=== PATIENT | male | born 1995 | race American Indian/Alaskan Native ===

== ENCOUNTER 2016-10-20 04:40 | Emergency (ER) | payer OTHER ==
[2016-10-20] MEDS ORDERED: XYLOCAINE 1%/ EPI 1:100,000 INFILTRATI NR (11:00)
[2016-10-20] MEDS ORDERED: XYLOCAINE 1% MPF 5 mL INFILTRATI ONE (11:04)
[2016-10-20] MEDS ORDERED: FLEXERIL PO ONE (11:18)
[2016-10-20] MEDS ORDERED: MOTRIN PO ONE (11:18)
[2016-10-20] MEDS ORDERED: BOOSTRIX IM ONE (11:18)
--- NOTE | 2016-10-20 11:57 | Emergency Department Report ---
HPI - General Chief Complaint: Medical Clearance Time Seen by Provider: 10/20/16 09:24 - HPI HPI: 21-year-old female presents today with a pain over his left mandaen, bilateral knee pain and lower back pain since 3 AM this morning. Patient states that he was elbowed to his left mandaen multiple times by the police. Patient also complaining of a Taser needle in his right hip. Tetanus status unknown. Patient states his bilateral knee pain and lower back pain seems like his muscles tense and is aching. Rates his left mandaen pain as 8 out of 10. Denies numbness, weakness, paresthesias. Denies visual change, dizziness, confusion. Denies fever, chills, nausea, vomiting, chest pain, shortness of breath, abdominal pain. ED Past Medical Hx - Past Medical History Previous Medical History?: No - Surgical History Past Surgical History?: No - Social History Smoking Status: Current Every Day Smoker Substance Use Type: None - Medications Home Medications: Home Medications Medication Instructions Recorded Confirmed Last Taken Type HYDROcodone/APAP 10-325 [[place] 1 each PO Q6HR PRN #16 tablet 12/20/14 Unknown Rx 10/325] HYDROcodone/APAP 5-325 [[place] 1 each PO Q6HR PRN #20 tablet 01/24/15 Unknown Rx 5/325] Sulfamethoxazole/Trimethoprim 1 each PO Q12H #28 tablet 01/24/15 Unknown Rx [Bactrim DS TAB] Ibuprofen [Motrin 600 MG tab] 600 mg PO Q8H PRN #50 tablet 10/20/16 Unknown Rx ED Review of Systems ROS: Stated complaint: MEDICAL CLEARANCE Other details as noted in HPI Constitutional: denies: chills, fever, malaise Eyes: denies: eye pain ENT: denies: ear pain, throat pain, congestion Respiratory: denies: cough, shortness of breath, wheezing Cardiovascular: denies: chest pain, palpitations Endocrine: no symptoms reported Gastrointestinal: denies: abdominal pain, nausea, vomiting Musculoskeletal: back pain, arthralgia Neurological: headache. denies: weakness, numbness, paresthesias Physical Exam - Physical Exam Vital Signs: Vital Signs 10/20/16 10/20/16 04:46 04:50 Temperature 97.6 F 98.3 F Pulse Rate 116 H 112 H Respiratory 18 18 Rate Blood Pressure 120/80 Blood Pressure 120/80 [Right] O2 Sat by Pulse 100 96 Oximetry Physical Exam: GENERAL: The patient is well-developed and well-nourished. Patient is in NAD. HEAD: Normocephalic. Atraumatic. Tenderness to palpation of the left temporal region. EYES: Extraocular motions are intact, PERRL. EARS: External auditory canals and tympanic membranes clear; hearing grossly intact. NOSE: Normal nasal mucosa with no nasal discharge. THROAT: No erythema, swelling or exudates. NECK: Supple, nontender, without lymphadenopathy. CHEST/LUNGS: Clear to auscultation throughout. HEART/CARDIOVASCULAR: Regular rate and rhythm. ABDOMEN: Abdomen is soft, nontender. No guarding or rebound tenderness. BUTTOCKS: Taser needle noted over the lateral aspect of right buttocks. No surrounding erythema or signs of infection noted. BILATERAL KNEE: Abrasions noted over bilateral knee. Full range of motion. Minimal tenderness to palpation. Normal sensation. Peripheral pulses intact. Capillary refill less than 2 seconds. BACK: Full ROM. No midline tenderness. Bilateral paraspinal tenderness of lumbar region. No tenderness to palpation of sciatic notch bilaterally. Negative straight leg raise bilaterally. Neuro: Alert and oriented 3, normal gait, fluid speech, EOMs intact, normal facial sensation, strength exam 5/5 upper and lower extremities, GCS equals 15, finger to nose normal, negative Romberg and pronator drift. ED Course Vital Signs 10/20/16 10/20/16 04:46 04:50 Temperature 97.6 F 98.3 F Pulse Rate 116 H 112 H Respiratory 18 18 Rate Blood Pressure 120/80 Blood Pressure 120/80 [Right] O2 Sat by Pulse 100 96 Oximetry ED Medical Decision Making - Lab Data Vital Signs 10/20/16 10/20/16 10/20/16 04:46 04:50 12:03 Temperature 97.6 F 98.3 F Pulse Rate 116 H 112 H 82 Respiratory 18 18 16 Rate Blood Pressure 120/80 Blood Pressure 120/80 133/80 [Right] O2 Sat by Pulse 100 96 Oximetry - Medical Decision Making 21-year-old female presents today with pain over the left mandaen, bilateral knee abrasions, lumbar strain post injury. The Taser needle was removed from right buttock, patient tolerated procedure well. When care instructions were provided. His tetanus was updated today. Patient was given Flexeril and ibuprofen for symptomatic relief.Patient is in no acute distress at this time. He will be discharged home and is encouraged to follow up with a primary care provider. He will be sent home on ibuprofen and is encouraged to return to the emergency room for any worsening symptoms. Critical care attestation.: If time is entered above; I have spent that time in minutes in the direct care of this critically ill patient, excluding procedure time. ED Disposition Clinical Impression: Puncture wound Knee abrasion Qualifiers: Encounter type: initial encounter Laterality: unspecified laterality Qualified Code(s): S80.219A - Abrasion, unspecified knee, initial encounter Headache Qualifiers: Headache type: post-traumatic Headache chronicity pattern: acute headache Intractability: not intractable Qualified Code(s): G44.319 - Acute post- traumatic headache, not intractable Lumbar strain Qualifiers: Encounter type: initial encounter Qualified Code(s): S39.012A - Strain of muscle, fascia and tendon of lower back, initial encounter Disposition: DISCHARGED TO HOME OR SELFCARE Is pt being admited?: No Does the pt Need Aspirin: No Condition: Stable Instructions: Muscle Strain (ED), Puncture Wound (ED), Minor Head Injury (ED), Acute Headache (ED) Additional Instructions: Follow up with primary care provider. Return to the Emergency Department if symptoms worsen. Prescriptions: Ibuprofen [Motrin 600 MG tab] 600 mg PO Q8H PRN #50 tablet PRN Reason: Pain Referrals: PRIMARY CARE, [Primary Care Provider] - 3-5 Days [facility] [Outside] - 3-5 Days Forms: Work/School Release Form(ED) Time of Disposition: 12:05
[2016-10-20 12:03] VITALS: BP 133/80
== END 2016-10-20 12:14 | disposition home or self-care (01) ==
LOC: EEVIPCON 04:40 → ED 04:40
DX: S31.813A Puncture wound without foreign body of right buttock, initial encounter (principal); S39.012A Strain of muscle, fascia and tendon of lower back, initial encounter; S80.212A Abrasion, left knee, initial encounter; S80.211A Abrasion, right knee, initial encounter; G44.319 Acute post-traumatic headache, not intractable; F17.200 Nicotine dependence, unspecified, uncomplicated; X58.XXXA Exposure to other specified factors, initial encounter; Y93.9 Activity, unspecified; Y92.9 Unspecified place or not applicable; Y99.9 Unspecified external cause status
CPT/HCPCS: 90471; 90715

== ENCOUNTER 2018-03-28 02:00 | Emergency (ER) | payer SELFPAY ==
[2018-03-28 02:04] VITALS: BP 128/87
[2018-03-28] MEDS ORDERED: MOTRIN PO ONE (06:15)
--- NOTE | 2018-03-28 06:16 | Emergency Department Report ---
- General Chief complaint: Skin/Abscess/Foreign Body Stated complaint: TOOTHACHE Time Seen by Provider: 03/28/18 06:05 Source: patient Mode of arrival: Ambulatory Limitations: No Limitations - History of Present Illness Initial comments: 23-year-old male presents with complaint of left-sided facial discomfort for several days. Patient has a small visible facial abscess. Patient has regular nights 3 not in acute distress. Denies fevers or chills. States he also has slight left-sided toothache. No trismus or drooling noted. Patient denies any pus or blood drainage from mouth. MD complaint: abscess/boil Onset/Timin -: days(s) Location: face Severity: moderate Severity scale (0 -10): 5 Quality: aching Consistency: constant - Related Data Previous Rx's Medication Instructions Recorded Last Taken Type HYDROcodone/APAP 10-325 [[place] 1 each PO Q6HR PRN #16 tablet 12/20/14 Unknown Rx 10/325] HYDROcodone/APAP 5-325 [[place] 1 each PO Q6HR PRN #20 tablet 01/24/15 Unknown Rx 5/325] Sulfamethoxazole/Trimethoprim 1 each PO Q12H #28 tablet 01/24/15 Unknown Rx [Bactrim DS TAB] Ibuprofen [Motrin 600 MG tab] 600 mg PO Q8H PRN #50 tablet 10/20/16 Unknown Rx Acetaminophen/Codeine [Tylenol 1 tab PO Q6H PRN #4 tab 03/28/18 Unknown Rx /Codeine # 3 tab] Ibuprofen [Motrin] 800 mg PO Q8HR PRN #20 tablet 03/28/18 Unknown Rx Sulfamethoxazole/Trimethoprim 1 each PO BID #14 tablet 03/28/18 Unknown Rx [Bactrim DS TAB] Allergies Allergy/AdvReac Type Severity Reaction Status Date / Time No Known Allergies Allergy Verified 12/20/14 09:29 Abscess Boil HPI - HPI Chief Complaint: Skin/Abscess/Foreign Body Stated Complaint: TOOTHACHE Time Seen by Provider: 03/28/18 06:05 Home Medications: Previous Rx's Medication Instructions Recorded Last Taken Type HYDROcodone/APAP 10-325 [[place] 1 each PO Q6HR PRN #16 tablet 12/20/14 Unknown Rx 10/325] HYDROcodone/APAP 5-325 [[place] 1 each PO Q6HR PRN #20 tablet 01/24/15 Unknown Rx 5/325] Sulfamethoxazole/Trimethoprim 1 each PO Q12H #28 tablet 01/24/15 Unknown Rx [Bactrim DS TAB] Ibuprofen [Motrin 600 MG tab] 600 mg PO Q8H PRN #50 tablet 10/20/16 Unknown Rx Acetaminophen/Codeine [Tylenol 1 tab PO Q6H PRN #4 tab 03/28/18 Unknown Rx /Codeine # 3 tab] Ibuprofen [Motrin] 800 mg PO Q8HR PRN #20 tablet 03/28/18 Unknown Rx Sulfamethoxazole/Trimethoprim 1 each PO BID #14 tablet 03/28/18 Unknown Rx [Bactrim DS TAB] Allergies/Adverse Reactions: Allergies Allergy/AdvReac Type Severity Reaction Status Date / Time No Known Allergies Allergy Verified 12/20/14 09:29 ED Review of Systems ROS: Stated complaint: TOOTHACHE Other details as noted in HPI ED Past Medical Hx - Past Medical History Previous Medical History?: No - Surgical History Past Surgical History?: No - Social History Smoking Status: Current Every Day Smoker - Medications Home Medications: Home Medications Medication Instructions Recorded Confirmed Last Taken Type HYDROcodone/APAP 10-325 [[place] 1 each PO Q6HR PRN #16 tablet 12/20/14 Unknown Rx 10/325] HYDROcodone/APAP 5-325 [[place] 1 each PO Q6HR PRN #20 tablet 01/24/15 Unknown Rx 5/325] Sulfamethoxazole/Trimethoprim 1 each PO Q12H #28 tablet 01/24/15 Unknown Rx [Bactrim DS TAB] Ibuprofen [Motrin 600 MG tab] 600 mg PO Q8H PRN #50 tablet 10/20/16 Unknown Rx Acetaminophen/Codeine [Tylenol 1 tab PO Q6H PRN #4 tab 03/28/18 Unknown Rx /Codeine # 3 tab] Ibuprofen [Motrin] 800 mg PO Q8HR PRN #20 tablet 03/28/18 Unknown Rx Sulfamethoxazole/Trimethoprim 1 each PO BID #14 tablet 03/28/18 Unknown Rx [Bactrim DS TAB] ED Physical Exam - General Limitations: No Limitations General appearance: alert, in no apparent distress - Head Head exam: Present: atraumatic, normocephalic, other - Expanded Head Exam Expanded 1 - small abscess here less than 3cm - Eye Eye exam: Present: normal appearance - ENT ENT exam: Present: mucous membranes moist - Neck Neck exam: Present: normal inspection - Respiratory Respiratory exam: Present: normal lung sounds bilaterally. Absent: respiratory distress - Cardiovascular Cardiovascular Exam: Present: regular rate, normal rhythm. Absent: systolic murmur, diastolic murmur, rubs, gallop - GI/Abdominal GI/Abdominal exam: Present: soft, normal bowel sounds - Rectal Rectal exam: Present: deferred - Extremities Exam Extremities exam: Present: normal inspection - Back Exam Back exam: Present: normal inspection - Neurological Exam Neurological exam: Present: alert, oriented X3 - Psychiatric Psychiatric exam: Present: normal affect, normal mood - Skin Skin exam: Present: warm, dry, intact, normal color. Absent: rash ED Course Vital Signs 03/28/18 01:58 Temperature 98.2 F Pulse Rate 79 Respiratory 18 Rate Blood Pressure 128/87 O2 Sat by Pulse 99 Oximetry - I & D Left Face Type of Procedure: Simple Site: left sided face Blade Size: 11 I & D Procedure: betadine prep, gauze wick placed Progress: Area infiltrated with lidocaine. Good local anesthesia achieved. Single stab incision made. Tiny amount of purulent drainage. Wound culture sent. 2 inches of iodoform gauze placed into wound. Covered with gauze afterward. ED Medical Decision Making - Medical Decision Making A/P: Facial abscess 1-abscesses very small I was able to completely resolve it with simple I&D 2-wound culture sent 3-Motrin when necessary short course Tylenol 3 when necessary, short course Bactrim 4- advised patient to return to the ED if abcess re-accumulates or for fever/ chills. pt is speaking in full sentences, no trismus or drooling or facial cellulitis noted. Critical care attestation.: If time is entered above; I have spent that time in minutes in the direct care of this critically ill patient, excluding procedure time. ED Disposition Clinical Impression: Facial abscess Disposition: TO HOME OR SELFCARE Is pt being admited?: No Does the pt Need Aspirin: No Condition: Stable Instructions: Abscess Incision and Drainage (ED), Abscess (ED) Prescriptions: Acetaminophen/Codeine [Tylenol /Codeine # 3 tab] 1 tab PO Q6H PRN #4 tab PRN Reason: Pain , Severe (7-10) Ibuprofen [Motrin] 800 mg PO Q8HR PRN #20 tablet PRN Reason: Pain , Severe (7-10) Sulfamethoxazole/Trimethoprim [Bactrim DS TAB] 1 each PO BID #14 tablet Referrals: [facility] [Outside] - 3-5 Days Forms: Work/School Release Form(ED) Time of Disposition: 06:50
== END 2018-03-28 06:52 | disposition home or self-care (01) ==
LOC: ED 02:00
DX: L02.01 Cutaneous abscess of face (principal); F17.200 Nicotine dependence, unspecified, uncomplicated
CPT/HCPCS: 87076; 87116; 87186

== ENCOUNTER 2019-06-08 14:30 | Emergency (ER) | payer OTHER ==
--- NOTE | 2019-06-08 14:40 | Emergency Department Report ---
Blank Doc - Documentation Documentation: This is a 24-year-old male that presents with acute on chronic headaches that is described as typical headache. Also stated has a boil to buttock area. This initial assessment/diagnostic orders/clinical plan/treatment(s) is/are subject to change based on patient's health status, clinical progression and re- assessment by fellow clinical providers in the ED. Further treatment and workup at subsequent clinical providers discretion. Patient/guardians urged not to elope from the ED as their condition may be serious if not clinically assessed and managed. Initial orders include: 1- Patient sent to [facility] for further evaluation and treatment
[2019-06-08 14:41] VITALS: BP 135/71
[2019-06-08] MEDS ORDERED: XYLOCAINE 1% 20 mL INFILTRATI ONE (17:51)
[2019-06-08] MEDS ORDERED: NORCO 5/325 PO ONE (17:51)
--- NOTE | 2019-06-08 18:28 | Emergency Department Report ---
Abscess Boil HPI - HPI Chief Complaint: Skin/Abscess/Foreign Body Stated Complaint: RT BUTTOCK CYST/NECK/MIGRANE Time Seen by Provider: 06/08/19 14:38 Duration: 3 Days Location: Other (right buttock) Severity: Moderate History: Yes Pain, Yes Previous History, No Fever, No Purulent Drainage, No Numbness, No Foreign Body, No Insect Bite HPI: pt presents for recurring buttock abscess no fever no chills no n/v , Home Medications: Previous Rx's Medication Instructions Recorded Last Taken Type HYDROcodone/APAP 10-325 [[place] 1 each PO Q6HR PRN #16 tablet 12/20/14 Unknown Rx 10/325] HYDROcodone/APAP 5-325 [[employer] 1 each PO Q6HR PRN #20 tablet 01/24/15 Unknown Rx 5/325] Sulfamethoxazole/Trimethoprim 1 each PO Q12H #28 tablet 01/24/15 Unknown Rx [Bactrim DS TAB] Ibuprofen [Motrin 600 MG tab] 600 mg PO Q8H PRN #50 tablet 10/20/16 Unknown Rx Acetaminophen/Codeine [Tylenol 1 tab PO Q6H PRN #4 tab 03/28/18 Unknown Rx /Codeine # 3 tab] Ibuprofen [Motrin] 800 mg PO Q8HR PRN #20 tablet 03/28/18 Unknown Rx Sulfamethoxazole/Trimethoprim 1 each PO BID #14 tablet 03/28/18 Unknown Rx [Bactrim DS TAB] cephALEXin [Keflex] 500 mg PO Q8H 10 Days #30 cap 06/08/19 Unknown Rx traMADol [Ultram] 50 mg PO Q6HR PRN #12 tablet 06/08/19 Unknown Rx Allergies/Adverse Reactions: Allergies Allergy/AdvReac Type Severity Reaction Status Date / Time No Known Allergies Allergy Verified 12/20/14 09:29 ED Review of Systems ROS: Stated complaint: RT BUTTOCK CYST/NECK/MIGRANE Other details as noted in HPI Constitutional: denies: chills, fever Eyes: denies: eye pain, eye discharge, vision change ENT: denies: ear pain, throat pain Respiratory: denies: cough, shortness of breath, wheezing Cardiovascular: denies: chest pain, palpitations Endocrine: no symptoms reported Gastrointestinal: denies: abdominal pain, nausea, vomiting, diarrhea, hematemesis, hematochezia Genitourinary: denies: urgency, dysuria, frequency, hematuria, discharge Musculoskeletal: denies: back pain, joint swelling, arthralgia Skin: lesions (right buttocks abscess). denies: rash Neurological: denies: headache, weakness, paresthesias Psychiatric: denies: anxiety, depression Hematological/Lymphatic: denies: easy bleeding, easy bruising ED Past Medical Hx - Past Medical History Previous Medical History?: No - Surgical History Past Surgical History?: No - Social History Smoking Status: Never Smoker Substance Use Type: None - Medications Home Medications: Home Medications Medication Instructions Recorded Confirmed Last Taken Type HYDROcodone/APAP 10-325 [[employer] [employer] 1 each PO Q6HR PRN #16 tablet 12/20/14 Unknown Rx 10/325] HYDROcodone/APAP 5-325 [[employer] [employer] 1 each PO Q6HR PRN #20 tablet 01/24/15 Unknown Rx 5/325] Sulfamethoxazole/Trimethoprim 1 each PO Q12H #28 tablet 01/24/15 Unknown Rx [Bactrim DS TAB] Ibuprofen [Motrin 600 MG tab] 600 mg PO Q8H PRN #50 tablet 10/20/16 Unknown Rx Acetaminophen/Codeine [Tylenol 1 tab PO Q6H PRN #4 tab 03/28/18 Unknown Rx /Codeine # 3 tab] Ibuprofen [Motrin] 800 mg PO Q8HR PRN #20 tablet 03/28/18 Unknown Rx Sulfamethoxazole/Trimethoprim 1 each PO BID #14 tablet 03/28/18 Unknown Rx [Bactrim DS TAB] cephALEXin [Keflex] 500 mg PO Q8H 10 Days #30 cap 06/08/19 Unknown Rx traMADol [Ultram] 50 mg PO Q6HR PRN #12 tablet 06/08/19 Unknown Rx ED Abscess Boil Physical Exam - Exam General: Vital signs noted. No distress. Alert and acting appropriately. Size: 2 cm Exam: Yes Tenderness, Yes Fluctuance, Yes Heart Murmur, Yes Normal Neurologic Exam, Yes Normal Circulation, No Surrounding Cellulites/Erythema, No Lymphangitis, No Crepitation I & D Note - I & D Note I & D Note: right buttocks abscess 3x3 cm fluctuant , wound cleaned with betadine solution, anesthesia with 1% lidocaine 2 cc, incision with 11 blade x 1 moderate purulent output wound irrigated with 30 cc sterile saline. sterile dressing applied, all bleed controlled pt given wound care instructions. ED Course Vital Signs 06/08/19 06/08/19 14:38 18:19 Temperature 99.2 F Pulse Rate 97 H Respiratory 13 16 Rate Blood Pressure 135/71 [Left] O2 Sat by Pulse 96 Oximetry Critical care attestation.: If time is entered above; I have spent that time in minutes in the direct care of this critically ill patient, excluding procedure time. ED Medical Decision Making - Medical Decision Making abscess for I&D see procedure note, will follow up with pcp in 2-3 days for wound check, pt verbalized agreement and understanding of same. pt dc'd to home in stable condition at this. ED Disposition Clinical Impression: Abscess Disposition: DC-01 TO HOME OR SELFCARE Is pt being admited?: No Does the pt Need Aspirin: No Condition: Stable Instructions: Abscess (ED) Prescriptions: cephALEXin [Keflex] 500 mg PO Q8H 10 Days #30 cap traMADol [Ultram] 50 mg PO Q6HR PRN #12 tablet PRN Reason: Pain Referrals: YELITZA SOARES MD [Staff Physician] - 3-5 Days Forms: Work/School Release Form(ED) Time of Disposition: 18:56
== END 2019-06-08 19:03 | disposition home or self-care (01) ==
LOC: ED 14:30
DX: L02.31 Cutaneous abscess of buttock (principal); Z79.899 Other long term (current) drug therapy

== ENCOUNTER 2021-11-15 16:51 | Emergency (ER) | payer OTHER ==
[2021-11-15 18:04] VITALS: BP 142/96
[2021-11-15] MEDS ORDERED: ACETAMINOPHEN 325 MG TAB PO ONE (18:27)
[2021-11-15] MEDS ORDERED: IBUPROFEN 400 MG TAB PO ONE (18:27)
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
== END 2021-11-15 20:05 | disposition home or self-care (01) ==
LOC: ED 16:51
DX: S13.4XXA Sprain of ligaments of cervical spine, initial encounter (principal); M25.512 Pain in left shoulder; V49.9XXA Car occupant (driver) (passenger) injured in unspecified traffic accident, initial encounter; Y93.89 Activity, other specified; Y92.89 Other specified places as the place of occurrence of the external cause; Y99.8 Other external cause status
CPT/HCPCS: 99283